=== PATIENT | male | born 1955 | race Caucasian/White ===

== ENCOUNTER → 2016-06-18 | Outpatient (CLI) | payer OTHER ==
[~2016-06-18] MED LIST: COQ1100C; COQ150CA PO; EZET10 PO; FISH1000 PO; MAGN500T4 PO; PROBCAP4 PO; VITA100T50 PO
[2016-06-18 07:00] LABS: HEMATOCRIT 41.6 % (39.0-51.0); MEAN CELL VOLUME 88.1 FL (80.0-100.0); MEAN CORPUSCULAR HEMOGLOBIN 31.1 PG (27.0-34.0); MEAN CORPUSCULAR HGB CONC 35.3 % (32.0-36.0); PLATELET COUNT 246 TH/MM3 (150-450); RED BLOOD COUNT 4.73 MIL/MM3 (4.50-5.90); RED CELL DISTRIBUTION WIDTH 13.3 % (11.6-17.2); REVIEW FLAG FINAL; WHITE BLOOD COUNT 7.4 TH/MM3 (4.0-11.0)
[2016-06-18 07:13] LABS: ALT (GPT) 49 U/L (12-78); ANION GAP 5 MEQ/L (5-15); AST (GOT) 29 U/L (15-37); BICARBONATE 26.8 MEQ/L (21.0-32.0); BLOOD UREA NITROGEN 29 MG/DL (7-18); CHLORIDE 110 MEQ/L (98-107); GLOMERULAR FILTRATION RATE 63 ML/MIN (>89); GLUCOSE,FASTING 92 MG/DL (74-99); POTASSIUM 4.4 MEQ/L (3.5-5.1); SODIUM (NA) 142 MEQ/L (136-145)
[2016-06-18 07:23] LABS: ALKALINE PHOSPHATASE 50 U/L (45-117); HDL CHOLESTEROL 51.4 MG/DL (40.0-60.0); LDL CHOLESTEROL 120 MG/DL (0-99); TOTAL BILIRUBIN ADULT 0.6 MG/DL (0.2-1.0)
== END ==
LOC: CLAB 06:34
PROVIDERS: ATTEND Family Medicine
DX: Z00.00 Encounter for general adult medical examination without abnormal findings (principal); Z12.5 Encounter for screening for malignant neoplasm of prostate
CPT/HCPCS: 36415; 80053; 80061; 84153; 84443; 85027

== ENCOUNTER → 2017-06-03 | Outpatient (CLI) | payer OTHER ==
[2017-06-03 07:30] LABS: ALBUMIN 4.5 GM/DL (3.4-5.0); AST (GOT) 37 U/L (15-37); BICARBONATE 28.3 MEQ/L (21.0-32.0); BLOOD UREA NITROGEN 31 MG/DL (7-18); CALCIUM 9.1 MG/DL (8.5-10.1); CHLORIDE 105 MEQ/L (98-107); CHOLESTEROL 212 MG/DL (120-200); CREATININE 1.07 MG/DL (0.60-1.30); GLOMERULAR FILTRATION RATE 70 ML/MIN (>89); GLUCOSE,FASTING 87 MG/DL (74-99); SODIUM (NA) 138 MEQ/L (136-145); TRIGLYCERIDES 95 MG/DL (42-150)
[2017-06-03 07:35] LABS: ALKALINE PHOSPHATASE 67 U/L (45-117); ALT (GPT) 59 U/L (12-78); CHOLESTEROL/ HDL RATIO 4.03 RATIO; HDL CHOLESTEROL 52.6 MG/DL (40.0-60.0); LDL CHOLESTEROL 140 MG/DL (0-99); TOTAL BILIRUBIN ADULT 0.9 MG/DL (0.2-1.0); TOTAL PROTEIN 8.1 GM/DL (6.4-8.2)
== END ==
LOC: CLAB 06:35
PROVIDERS: ATTEND Family Medicine
DX: E78.2 Mixed hyperlipidemia (principal)
CPT/HCPCS: 36415; 80053; 80061

== ENCOUNTER → 2017-10-22 | Outpatient (CLI) | payer OTHER ==
[2017-10-22 07:09] LABS: AUTOMATED NEUTROPHIL # 3.6 TH/MM3 (1.8-7.7); BASOPHIL % 0.6 % (0.0-2.0); EOSINOPHIL # 0.1 TH/MM3 (0-0.4); EOSINOPHIL % 0.8 % (0.0-4.0); HEMATOCRIT 43.2 % (39.0-51.0); HEMOGLOBIN 15.1 GM/DL (13.0-17.0); LYMPH % 49.7 % (9.0-44.0); LYMPHOCYTE # 4.1 TH/MM3 (1.0-4.8); MEAN CELL VOLUME 89.4 FL (80.0-100.0); MEAN CORPUSCULAR HEMOGLOBIN 31.3 PG (27.0-34.0); MEAN PLATELET VOLUME 6.8 FL (7.0-11.0); MONO % 5.5 % (0.0-8.0); MONOCYTE # 0.5 TH/MM3 (0-0.9); NEUT % 43.4 % (16.0-70.0); PLATELET COUNT 263 TH/MM3 (150-450); RED BLOOD COUNT 4.83 MIL/MM3 (4.50-5.90); RED CELL DISTRIBUTION WIDTH 13.2 % (11.6-17.2); WHITE BLOOD COUNT 8.3 TH/MM3 (4.0-11.0)
[2017-10-22 07:32] LABS: ALBUMIN 4.1 GM/DL (3.4-5.0); AST (GOT) 37 U/L (15-37); BICARBONATE 25.8 MEQ/L (21.0-32.0); BLOOD UREA NITROGEN 25 MG/DL (7-18); CALCIUM 9.2 MG/DL (8.5-10.1); CHLORIDE 106 MEQ/L (98-107); CREATININE 1.26 MG/DL (0.60-1.30); GLOMERULAR FILTRATION RATE 58 ML/MIN (>89); GLUCOSE,FASTING 94 MG/DL (74-99); SODIUM (NA) 143 MEQ/L (136-145)
[2017-10-22 07:33] LABS: ALT (GPT) 82 U/L (12-78); CHOLESTEROL 210 MG/DL (120-200); TRIGLYCERIDES 139 MG/DL (42-150)
[2017-10-22 07:43] LABS: ALKALINE PHOSPHATASE 71 U/L (45-117); CHOLESTEROL/ HDL RATIO 4.26 RATIO; HDL CHOLESTEROL 49.2 MG/DL (40.0-60.0); LDL CHOLESTEROL 133 MG/DL (0-99); TOTAL BILIRUBIN ADULT 0.8 MG/DL (0.2-1.0); TOTAL PROTEIN 7.7 GM/DL (6.4-8.2)
== END ==
LOC: CLAB 06:41
PROVIDERS: ATTEND Family Medicine
DX: E78.2 Mixed hyperlipidemia (principal); G90.09 Other idiopathic peripheral autonomic neuropathy
CPT/HCPCS: 36415; 80053; 80061; 84153; 84443; 85025